=== PATIENT | male | born 1985 | race Caucasian/White ===

== ENCOUNTER 2017-07-26 11:01 | Emergency (ER) | payer SELFPAY ==
[~2017-07-26] VITALS: Ht 175.3 cm; Wt 72.7 kg
[~2017-07-26 11:01] MED LIST: KLONOPIN 1MG1 MG PO; NORCO 325 MG-51 TAB PO; PRIL40 PO
[2017-07-26 11:09] VITALS: TEMP 98.6
[2017-07-26 12:43] LABS: ADJUSTED CALCIUM 8.8 mg/dL (8.4-10.2); BILIRUBIN,TOTAL 20.6 mg/dL (0.0-1.0); CREATININE, serum 0.9 mg/dL (0.66-1.25); POTASSIUM 3.2 mmol/L (3.4-5.0); TOTAL PROTEIN 8.6 gm/dL (6.4-8.2)
[2017-07-26 12:44] LABS: PARTIAL THROMBOPLASTIN TIME 74.6 SECONDS (26.0-37.0)
[2017-07-26 12:58] LABS: MEAN CELL VOLUME 107 fl (80.0-100.0); MEAN CORPUSCULAR HGB CONC 35 g/dl (33.0-37.0); MEAN PLATELET VOLUME 10.3 fl (7.4-10.4); PLATELET COUNT 57 K/mm3 (130-400); RED BLOOD COUNT 2.22 M/mm3 (4.20-5.60); REDCELL DISTRIBUTION WIDTH-CV 16.6 % (11.5-14.5); WHITE BLOOD COUNT 9.3 K/mm3 (4.8-10.8)
[2017-07-26 13:04] LABS: ADD PATHOLOGY DIFF REVIEW NO; HEMATOCRIT 23.8 % (42.0-52.0); HEMOGLOBIN 8.4 g/dl (13.5-18.0); MEAN CORPUSCULAR HEMOGLOBIN 38 pg (27.0-31.0)
[2017-07-26 13:29] LABS: PH 6 (5-8); SQUAMOUS EPITHELIAL 0-2 /hpf; URINE APPEARANCE Cloudy; URINE BACTERIA Rare /hpf; URINE BILIRUBIN Positive (NEGATIVE); URINE BLOOD 1+ (NEGATIVE); URINE COLOR Amber; URINE GLUCOSE 1+ (NEGATIVE); URINE KETONE Negative (NEGATIVE); URINE RBC 0-2 /hpf; URINE UROBILINOGEN >=4.0 mg/dL (NEGATIVE)
[2017-07-26 13:51] LABS: INR 3.2 (0.8-3.0); PROTHROMBIN TIME 37.2 SECONDS (9.7-12.8)
[2017-07-26 14:34] LABS: ANISOCYTOSIS 2+; BAND 6 % (0-10); NEUTROPHILS 79 % (42.0-75.2); PLATELET ESTIMATE DECREASED (NORMAL); TOTAL CELLS COUNTED 100
[2017-07-26] MEDS ORDERED: NORCO2.5 PO (16:13)
[2017-07-26 16:54] VITALS: BP 126/82; PULSE 92
== END 2017-07-26 17:05 | disposition home or self-care (01) ==
LOC: COL.ER 11:01
PROVIDERS: Emergency Medicine
DX: M79.601 Pain in right arm (principal); Z90.49 Acquired absence of other specified parts of digestive tract; Z87.891 Personal history of nicotine dependence; Z87.19 Personal history of other diseases of the digestive system
CPT/HCPCS: J7030